=== PATIENT | male | born 1990 | race Two or more races ===

== ENCOUNTER 2025-01-11 06:56 | Emergency (ER) | payer MEDICAID, SELFPAY ==
[2025-01-11] VITALS (11 sets, daily range): BP systolic 127–153; BP diastolic 76–91; PULSE 80–115; RESP 15–27; TEMP 36.8–39.5; O2SAT 92–96; BMI 24.8
--- NOTE | 2025-01-11 07:30 | XR_ITS ---
Examination: PA lateral chest 2 views Technique: Upright PA lateral chest 2 views Exam date and time: January 11, 2025 0739 hrs. Indications: Coughing fever beginning one week ago. Findings: Early bibasilar pneumonia, especially posterior basal segment right lower lobe Normal heart size Intact osseous structures Impression: Bibasilar pneumonia
[2025-01-11] MEDS: ACETAMINOPHEN 500 MG TABLET 1000 MG PO (07:36)
--- NOTE | 2025-01-11 07:45 | EKG_ITS ---
[facility] Test Date: 2025-01-11 Pat Name: LINDA POLLARD Department: Room: - Gender: Male [employer]ice: : 1990 Requested By: Luma Louis Order Number: [id number] Reading MD: Luma Louis Measurements Intervals [place] Rate: 80 P: 18 [place]: 161 QRS: 5 QRSD: 96 T: 2 QT: 359 QTc: 414 Interpretive Statements SINUS RHYTHM No previous ECG available for comparison /store/S0/[id number]/[id number].pdf
[2025-01-11] MEDS: SODIUM CHLORIDE 0.9% 1000 ML 1,000 ML 999 ML IV (08:05)
--- NOTE | 2025-01-11 08:12 | EDNOTE_ITS ---
Upper Respiratory Inf. RME/HPI General Chief Complaint: Flu Like Symptoms Stated Complaint: COUGH,FEVER, CHEST AREA PAIN Time Seen by Provider: 01/11/25 06:59 Arrival date/time: 01/11/25 06:56 RME / HPI RME / HPI Narrative: DR. FOSNECA MAIN ED EVALUATION: 34 year old male with no past medical history presents to the Emergency Department with complaints of flu-like symptoms including a cough, congestion, and a fever. Symptoms are mild to moderate. No other symptoms reported. Patient denies any tobacco, alcohol, or substance use. Related Data Previous Rx's ?Medication ?Instructions ?Recorded oseltamivir 75 mg capsule (Tamiflu) 75 mg PO BID 5 day s #10 caps 01/11/25 Allergies Allergy/AdvReac Type Severity Reaction Status Date / Time No Known Allergies Allergy Verified 01/11/25 07:05 Review of Systems Review of Systems Systems Reviewed: All systems reviewed, normal except as documented Narrative Review of Systems: GEN: + fever, no chills, no weight loss EYES: No discharge, no visual changes, no pain HEENT: No ear pain, + congestion, no sore throat PULM: No shortness of breath, + cough, + congestion CV: No chest pain, no dyspnea on exertion, no palpitations GI: No nausea, no vomiting, no diarrhea, no pain, no constipation : No frequency, no urgency and no dysuria MUSC/SKEL: No joint pain, no back pain SKIN: No rash PSYCH: No hallucinations, no depression HEME/LYMPH: No easy bleeding or bruising tendencies NEURO: No weakness, no headache Past Medical History Past Medical History CARDIAC: Negative Congestive Heart Failure RESPIRATORY: Negative Chronic Obstructive Pulmonary Disease (COPD) GENITOURINARY: Negative Renal Disease ENDOCRINE: Negative Diabetes Mellitus Type 1 or Diabetes Mellitus Type 2 Social History SMOKING STATUS: Never smoker SUBSTANCE USE: does not use ALCOHOL: Never ED Exam Narrative Physical exam: GENERAL APPEARANCE: alert and oriented x 4, well-developed, well-nourished, no acute distress VITALS: All vitals were reviewed and the pulse ox is 93% on room air, which is normal according to my interpretation. HEENT: Normocephalic, atraumatic; pupils equal, round, reactive to light; EOMI; mucous membranes pink, moist; oropharynx clear NECK: Supple LUNGS: CTABL; no wheezes, no rales, no rhonchi HEART: Regular rate, regular rhythm; normal S1, S2; no murmurs ABDOMEN: non distended; normal BS; soft, no tenderness, no guarding, no rebound; no masses, no organomegaly, no hernia BACK: no CVA tenderness EXTREMITIES: atraumatic; no edema NEUROLOGIC: awake; alert and oriented x4; cranial nerves II-XII grossly intact; no focal sensory or motor deficits PSYCHIATRIC: appropriate mood and affect SKIN: warm, dry, normal color; no rashes Course Quality Measures none Orders Category Date Time Status Bedside COVID-19 Antigen Test NOW Care 01/11/25 07:33 Active Bedside Influenza A&B Antigen Test NOW Care 01/11/25 07:29 Completed Continuous Pulse Oximetry NOW Care 01/11/25 07:36 Completed EKG (ED ONLY) *Do not use* NOW Care 01/11/25 07:45 Completed EKG (ED Only) Stat Exams 01/11/25 07:45 Draft XR chest 2V Stat Exams 01/11/25 07:30 Completed Blood Culture (Lab) Stat Lab 01/11/25 08:06 Received CBC Stat Lab 01/11/25 08:06 Completed Comprehensive Metabolic Panel Stat Lab 01/11/25 08:06 Completed Lactate (Lactic Acid) Stat Lab 01/11/25 08:06 Completed Lipase Stat Lab 01/11/25 08:06 Completed Procalcitonin Stat Lab 01/11/25 08:06 Completed Troponin I Stat Lab 01/11/25 08:06 Completed Urinalysis Stat Lab 01/11/25 07:53 Completed Urine Culture Stat Lab 01/11/25 07:53 Received Acetaminophen Tab [Tylenol ES Tab] Med 01/11/25 07:29 Discontinued 1,000 mg PO X1 ONE Azithromycin Po [Zithromax PO] Med 01/11/25 11:55 Discontinued 500 mg PO X1 ONE Morphine Inj Med 01/11/25 08:22 Discontinued 5 mg IVP X1 ONE Ondansetron Inj [Zofran Inj] Med 01/11/25 08:22 Discontinued 4 mg IV X1 ONE Oseltamivir [Tamiflu] Med 01/11/25 08:11 Discontinued 75 mg PO X1 ONE Sodium Chloride 0.9% 1000 ml [Ns] 1,000 ml Med 01/11/25 07:44 Discontinued IV 999 mls/hr Vital Signs Vital signs: Vital Signs Temperature 103.1 F H 01/11/25 07:29 Pulse Rate 115 H 01/11/25 07:29 Respiratory Rate 27 H 01/11/25 07:29 Blood Pressure 140/76 H 01/11/25 07:29 Pulse Oximetry (%) 92 L 01/11/25 07:29 Oxygen Delivery Method Room Air 01/11/25 07:29 Procedures -ED EKG Interpretation #1: Date of EK01/11/25 Time of EK:10 Rate: 80 Interpretation: Interpreted by me Additional EKG comment: sinus rhythm, rate 80, no acute ischemic changes Upper Respiratory Infection MDM Narrative MDM Narrative:: I, Lizzie López, deepak scribing for and in the presence of Dr. Fonseca. Patient data External records reviewed:: None (no previous visits) Clinical information provided by:: patient Social determinants that could affect healthcare access:: none Patient has the following chronic illnesses:: Denies any PMHx, surgeries, daily medications, or known allergies. How is presenting disease/condition affected by chronic disease/condition?: no chronic disease Evaluation data The following diagnostics were reviewed and interpreted by me:: lab results, radiology exam(s) and EKG tracing(s) (EKG#1: EKG at 1010 hours. Interpreted by me: sinus rhythm, rate 80, no acute ischemic changes) Lab and/or radiology exams considered but not ordered:: none Interpretation Summary: Chest xray, my interpretation, shows mild lower lobe infiltrate; I agree with radiologist report (see below). RADIOLOGY Procedure(s): XR chest 2V Accession Number(s): [id number] cc: Aleida (OLEG),Tobin DEJESUS; Mario Schultz MD~ Examination: PA lateral chest 2 views Technique: Upright PA lateral chest 2 views Exam date and time: January 11, 2025 0739 hrs. Indications: Coughing fever beginning one week ago. Findings: Early bibasilar pneumonia, especially posterior basal segment right lower lobe Normal heart size Intact osseous structures Impression: Bibasilar pneumonia Dictated By: Mario Schultz MD Medications / Prescriptions Medications or Prescriptions considered but not ordered:: none Medication administrations:: Medication Administration History Discontinued Medications Acetaminophen (Acetaminophen 500 Mg Tablet) 1,000 mg PO X1 ONE Stop: 01/11/25 07:30 Last Admin: 01/11/25 07:36 Dose: 1,000 mg Documented By: GIANFRANCO Azithromycin (Azithromycin 250 Mg Tablet) 500 mg PO X1 ONE Stop: 01/11/25 11:56 Last Admin: 01/11/25 12:38 Dose: 500 mg Documented By: CATARINO Sodium Chloride (Ns) 1,000 mls @ 999 mls/hr IV .Q1H1M ONE Stop: 01/11/25 08:44 Last Infusion: 01/11/25 09:18 Dose: Infused Documented By: Admin: 01/11/25 08:05 Dose: 999 mls/hr Documented By: CATARINO Morphine Sulfate (Morphine Sulf Inj 10 Mg/Ml Vial) 5 mg IVP X1 ONE Stop: 01/11/25 08:23 Last Admin: 01/11/25 09:13 Dose: 5 mg Documented By: CATARINO Ondansetron HCl (Ondansetron Inj 2 Mg/Ml Inj 2 Ml) 4 mg IV X1 ONE Stop: 01/11/25 08:23 Last Admin: 01/11/25 09:12 Dose: 4 mg Documented By: CATARINO Oseltamivir Phosphate (Oseltamivir 75 Mg Capsule) 75 mg PO X1 ONE Stop: 01/11/25 08:12 Last Admin: 01/11/25 09:13 Dose: 75 mg Documented By: CATARINO see above Consultations Consultation(s) initiated? (list below): No Diagnosis Upper Respiratory Differential Diagnosis: upper respiratory infection, viral infection, bronchitis and influenza Most likely diagnosis given after review of the tests above:: Influenza A Influenza B Pneumonia Admission Indicated Admission indicated?: not indicated Admission Request Was there a request for admission?: No Disposition Plan Disposition Plan: Discharge Discharge Attestation Discharge Attestation: The patient and all family members were given an opportunity to ask questions and understood the discharge instructions. Discharge instructions specifically effects, indications for sooner follow up or return to the emergency department, and the expected course of current diagnosis. Patient condition: Stable Discharge Plan Plan Patient Disposition: HOME (Self Care) Prescriptions/Referrals Prescriptions/Med Rec: New oseltamivir [Tamiflu] 75 mg capsule 75 mg PO BID 5 Days Qty: 10 0RF Referrals: Seun Mar MD [Primary Care Provider] - In 1 week Problem List Clinical Impression: Influenza A, Influenza B, Pneumonia Patient/Caregiver Discharge Instructions Print Language: [place] Stand Alone Forms: Valerie Award Info., Patient Portal Info Letter
[2025-01-11 08:30] LABS: Lactate (Lactic Acid) 1.7 mMol/L (0.4-2.0)
[2025-01-11 08:31] LABS: Collection Type, Urine Clean Catch; Squamous Epithelial Cell,Urine 0 /hpf (0-5)
[2025-01-11 08:36] LABS: Basophils % (Auto) 0 % (0-2.5); Eosinophils # (Auto) 0.2 Thou/mm3 (0.0-0.5); Eosinophils % (Auto) 2 % (0-10); Hematocrit 44.8 % (41.0-53.0); Hemoglobin 15.7 g/dL (13.5-16.0); Immature Granulocytes % (Auto) 1 % (0-0); Immature Granulocytes Auto 0.04 Thou/mm3 (0.00-0.00); Lymphocytes # (Auto) 0.9 Thou/mm3 (1.0-4.8); Lymphocytes % (Auto) 10 % (10-50); Mean Corpuscular Hemoglobin 28.3 pg (25.0-35.0); Mean Corpuscular Volume 81 fL (80-100); Monocytes % (Auto) 12 % (0-12); Neutrophils # (Auto) 6.7 Thou/mm3 (1.8-7.7); Neutrophils % (Auto) 76 % (37-80); Nucleated Red Blood Cell % 0 /100 WBC (0); Platelet Count 243 Thou/mm3 (140-440); RDW Standard Deviation 34.5 fL (35.1-43.9); Red Blood Count 5.55 Miln/mm3 (4.50-5.90); White Blood Count 8.8 Thou/mm3 (3.8-10.6)
[2025-01-11 08:41] LABS: Bilirubin,Urine Negative (Negative); Blood,Urine 1+ (Negative); Clarity,Urine Clear (Clear/Hazy); Color,Urine Yellow (Lt Yel-Yel); Glucose, Urine Negative (Negative); Ketones,Urine 3+ (Negative); Leukocyte Esterase,Urine Negative (Negative); Nitrite,Urine Negative (Negative); Protein,Urine 1+ (Neg - Trace); RBC,Urine 3 /hpf (0-3); Specific Gravity,Urine 1.029 (1.001-1.035); Urobilinogen,Urine Negative mg/dL (0.0-1.0); WBC,Urine 1 /hpf (0-5)
[2025-01-11 08:58] LABS: Alanine Aminotransferase 40 U/L (10-49); Albumin, Serum 4.5 gm/dL (3.5-5.0); Albumin/Globulin Ratio 1.4 (1.2-2.2); Alkaline Phosphatase 92 U/L (46-116); Anion Gap 11 (7-16); Aspartate Amino Transferase 10 U/L (0-34); BUN/Creatinine Ratio 14 Ratio (12-20); Bilirubin,Total 0.6 mg/dL (0.3-1.2); Blood Urea Nitrogen 13 mg/dL (9-23); Carbon Dioxide 24.3 mMol/L (20.0-31.0); Chloride 101 mMol/L (98-107); Creatinine (Component) 0.9 mg/dL (0.6-1.3); Estimated Creatinine Clearance 103.4 mL/min (>60); Globulin 3.2 gm/dL (2.3-3.5); Glucose 101 mg/dL (74-106); Lipase 37 U/L (12-53); Osmolality,Calculated 272 (275-295); Potassium 3.6 mMol/L (3.4-5.1); Procalcitonin 0.35 ng/ml (0.0-0.49); Sodium 136 mMol/L (136-145); Total Protein 7.7 gm/dL (5.7-8.2); Troponin I < 0.002 ng/mL (0.0-0.045); eGFR > 60 See Note
[2025-01-11] MEDS: ONDANSETRON INJ 2 MG/ML INJ 2 ML 4 MG IV (09:12)
[2025-01-11] MEDS: MORPHINE SULF INJ 10 MG/ML VIAL 5 MG IVP (09:13)
[2025-01-11] MEDS: OSELTAMIVIR 75 MG CAPSULE PO (09:13)
[2025-01-11] MEDS: AZITHROMYCIN 250 MG TABLET 500 MG PO (12:38)
--- NOTE | 2025-01-11 15:11 | PC.NURSE ---
PATENT STATES PAIN 07/16. INFORMED ER PROVIDER AND RECEIVED VERBAL ORDER FOR 0.5 MG HYDROMORPHONE.
[2025-01-11] MEDS: ACETAMINOPHEN 325 MG TABLET 650 MG PO (15:14)
[2025-01-11] MEDS: KETOROLAC INJ 30 MG/ML VIAL 15 MG IVP (15:15)
[2025-01-11] MEDS: HYDROmorphone INJ 2 MG/ML VIAL 0.5 MG IVP (15:15)
== END 2025-01-11 16:03 | disposition home or self-care (01) ==
PROVIDERS: Nurse Practitioner Primary Care; Emergency Provider Emergency Medicine; PCP Family Medicine
DX: J10.00 Influenza due to other identified influenza virus with unspecified type of pneumonia (principal)
CPT/HCPCS: 36415; 71046; 80053; 81001; 83605; 83690; 84145; 84484; 85025; 87040; 87086; 87400; 87811; 93005; 96361; 96374; 96375; 99284; J1885; J2270; J2405; J3490; J7030; A9270